=== PATIENT | male | born 1960 | race Caucasian/White ===

== ENCOUNTER 2018-08-02 10:42 | Emergency (ER) | payer SELFPAY ==
[~2018-08-02] VITALS: Ht 182.9 cm; Wt 68.2 kg
[2018-08-02 10:53] VITALS: Ht 182.9 cm; Wt 68.2 kg
[2018-08-02] MEDS ORDERED: PHENERGAN DM SYR5 ML PO (15:29)
[2018-08-02] MEDS ORDERED: AMOXICILLIN500 M1 PO (15:29)
[2018-08-02 16:05] VITALS: BP 131/79
== END 2018-08-02 16:05 | disposition home or self-care (01) ==
LOC: D.ER 10:42
DX: J06.9 Acute upper respiratory infection, unspecified (principal); J40 Bronchitis, not specified as acute or chronic; R09.89 Other specified symptoms and signs involving the circulatory and respiratory systems; F17.200 Nicotine dependence, unspecified, uncomplicated

== ENCOUNTER → 2019-05-31 15:11 | Outpatient (CLI) | payer OTHER ==
[2018-08-02 10:53] VITALS: BMI 20.4
[~2019-05-31 15:11] MED LIST: AMOXICILLIN500 M1 PO; PHENERGAN DM SYR5 ML PO
== END | disposition home or self-care (01) ==
LOC: D.RAD 15:11
PROVIDERS: ATTEND Pediatrics
DX: Z73.6 Limitation of activities due to disability (principal)